=== PATIENT | female | born 1985 ===

== ENCOUNTER 2018-03-19 07:14 | Day surgery (SDC) | payer BC ==
--- NOTE | 2018-03-18 18:55 | Pre-Procedure Note/Attestation ---
Pre-Procedure Note/Attestation Complete Prior to Procedure Planned Procedure: bilateral Procedure Narrative: 1. Septoplasty 2. Submucous resection bilateral inferior turbinates 3. Excision bilateral garett bulossa Indications for Procedure Pre-Operative Diagnosis: Nasal airway obstruction and sinus pressure secondary to: 1. Nasal septal deviation 2. Hypertrophied bilateral inferior turbinates 3. Bilateral garett bulossa. Attestation I attest that I discussed the nature of the procedure; its benefits; risks and complications; and alternatives (and the risks and benefits of such alternatives ), prior to the procedure, with the patient (or the patient's legal insurance claim representative). I attest that, if there was a reasonable possibility of needing a blood transfusion, the patient (or the patient's legal insurance claim representative) was given the [facility] standardized written summary, pursuant to the [place] Blood Safety Act ([place] Health and Safety Code # 1645, as amended). I attest that I re-evaluated the patient just prior to the surgery and that there has been no change in the patient's H&P, has been sent to hospital pre op by her PMD. I have reviewed and concur. I will sign electronically once uploaded to pts. hospital chart. Colton Giron MD Mar 18, 2018 18:55
--- NOTE | 2018-03-18 18:56 | Brief Operative Note ---
Immediate Post Operative Note Operative Note Chief Complaint: Nasal and sinus pressure Pre-op Diagnosis: Nasal airway obstruction and sinus pressure secondary to: 1. Nasal septal deviation 2. Hypertrophied bilateral inferior turbinates 3. Bilateral garett bulossa. Procedure: 1. Septoplasty 2. Submucous resection bilateral inferior turbinates 3. Excision bilateral garett bulossa Post-op Diagnosis: same as pre-op Surgeon: Colton Giron Hand Binder Stripper: none Additional Surgeons: none Anesthesiologist: Yariel Anesthesia: general Specimen: yes Complications: none Condition: stable Fluids: D5LR Estimated Blood Loss: volume - 50 cc Drains: none Packing: Stamberger nasal gel Implant(s) used?: No Colton Giron MD Mar 18, 2018 18:56
[2018-03-19] VITALS (10 sets, daily range): BP systolic 95–119; BP diastolic 65–88
[~2018-03-19] VITALS: Ht 162.6 cm; Wt 43.1 kg
[2018-03-19] MEDS ORDERED: LR 1000ml ONE (08:00)
[2018-03-19] MEDS ORDERED: NS Irrig 1000ml ONE (08:00)
[2018-03-19] MEDS ORDERED: Sterile Water Irrig 1000ml IRRIG ONE (08:00)
--- NOTE | 2018-03-19 08:04 | General Progress Note ---
Progress Note Progress Note PRE OP HISTORY AND PHYSICAL Summary View for Kale Moncada Page 1 of 3 Patient: Kale Moncada : 1985 Age: 32 Y Sex: Female [address]: [address] [place], [place] [id number] Provider: Bandar Pang MD, MPH Date: 02/11/2018 Subjective: Chief Complaints: 1. Nasal polyp. HPI: Nose/General: The patient states that she has had a long history of trouble breathing through the nose. She has to use a number of pillows to lift up her back. She finds that she wakes up multiple times through out the night. She has used Nasarel for many years but finds that it is not helping any more. She also has a constant PND and some rhinorrhea. She has been told that she has ansal polyps bilaterally. She finds that there is some sinus pressure as well. She finds that her sense of smell is OK. ROS: ALLERGY: runny nose yes, Yes; chronic. scratchy throat yes, Yes; chronic. itchy eyes Yes ; both eyes. no ear fullness, No. sinus congestion yes, In AM but pt does nasal rinse. stuffy nose yes, Yes; chronic. RESPIRATORY: no shortness of breath. no chest congestion. no cough. no wheezing. CARDIOLOGY: no chest pain. no palpitations. no leg edema. no shortness of breath. Blood Pressure controlled. no murmur. CONSTITUTIONAL: no weight gain. no loss of appetite. no fever. no weakness. no weight loss. fatigue yes. DERMATOLOGY: no rash. no mole. lumps yes, breast lump. dry or sensitive skin yes. no hives. ENDOCRINOLOGY: fatigue yes. no polydypsia. no polyuria. no weight loss. sleep disturbance wakes up frequently at night due to difficulty breathing. no diabetes. ENT: no cold. epistaxis yes, occasional. no hearing loss. no change in voice, No. no sore throat. ringing in ears yes, occasional. no dizziness. noise exposure Yes; loud music. no Q-tip usr. allergies perennial. no snoring, No. no water exposure. GASTROENTEROLOGY: no nausea. no heartburn. no vomiting. no dysphagia. no abdominal pain. no diarrhea. no constipation. no blood in stool. HEMATOLOGY/LYMPH: no swollen glands. fatigue yes. no loss of appetite. no varicose veins. no easy bruising. MUSCULOSKELETAL: no joint swelling. no joint pain. no leg cramps. no joint stiffness. back pain yes. NEUROLOGY: headache yes, mild H/A every day. no tingling numbness. no seizures. no insomnia. no memory loss. no dizziness. no gait abnormality. OPTHALMOLOGY: no diminished vision. eye irritation yes, both eyes. no drainage from eyes. no blurring of vision. no seasonal eye sx. no dander related eye sx. no loss of vision. PSYCHOLOGY: high stress level yes. depression yes. sleep disturbances yes, wakes up frequently at night. no suicidal ideation. eating disorder in past [email or web address]. Reviewed and approved by Dr. Colton Giron 03/19/18 0802 Colton Giron MD Mar 19, 2018 08:04
[2018-03-19] MEDS ORDERED: Lidocaine 1% 10mg/ml/Epi 0.005mg/ml 30ml vial INJ ONE (08:23)
[2018-03-19] MEDS ORDERED: Bupivacaine w/Epi 0.5% 30ml Vial INJ ONE (08:23)
[2018-03-19] MEDS ORDERED: Cocaine HCl 4% 4ml vial TOPIC ONE (08:23)
[2018-03-19] MEDS ORDERED: Midazolam 2mg/2ml Inj ONE (08:26)
[2018-03-19] MEDS ORDERED: fentaNYL 100 mcg/2 mL IV ONE (08:26)
[2018-03-19] MEDS ORDERED: ceFAZolin sod 1 GM in D5W 55 ML IV ONE (08:45)
[2018-03-19] MEDS ORDERED: Lidocaine 1% MPF 10mg/ml 5ml ONE (08:52)
[2018-03-19] MEDS ORDERED: Dexamethasone 4mg/ml vial ONE (08:52)
[2018-03-19] MEDS ORDERED: Metoclopramide 10mg/2ml Inj ONE (08:52)
[2018-03-19] MEDS ORDERED: Propofol 200mg/20ml IV ONE (08:52)
[2018-03-19] MEDS ORDERED: Dexamethasone 4mg/ml vial IVP ONE (09:00)
--- NOTE | 2018-03-19 09:11 | Discharge Instructions ---
Discharge Instructions Discharge Instructions Follow up with: next week, pt has appt already Diet: regular Resume Normal Activity?: No Activity: light activity Pneumonia Vaccine: pt refused vaccine Influenza Vaccine (Dec to May): pt refused vaccine Follow Up Orders Pt has preinted post op instructions that I reviewed and gave her during her pre op visit last week as well as post op meds-Amoxicillin and [place]. Return to Work/School on: Apr 02, 2018 Special Instructions Ice to face x 48 hours For Surgical Patients Contact your physician for: bleeding, pain, tenderness, redness, swelling, yellowish discharge in the op. site For Congestive Heart Failure Reminder Report to your physician any weight gain of 5 pounds or more in one week. Colton Giron MD Mar 19, 2018 09:11
--- NOTE | 2018-03-19 09:13 | Discharge Instructions ---
Discharge Instructions Discharge Instructions Follow up with: next week, pt already has appt. Diet: regular Resume Normal Activity?: No Activity: light activity Pneumonia Vaccine: pt refused vaccine Influenza Vaccine (Dec to May): pt refused vaccine Follow Up Orders pt has post op printed instructions as well as post op meds Amoxicillin and [place]-all given to pt last week in my office during her pre op visit. Return to Work/School on: Apr 02, 2018 For Surgical Patients Dressing Care: may change May shower: No For Congestive Heart Failure Reminder Report to your physician any weight gain of 5 pounds or more in one week. Colton Giron MD Mar 19, 2018 09:13
[2018-03-19] MEDS ORDERED: NORCO 5-325 TA1 EACH ORAL (09:15)
[2018-03-19] MEDS ORDERED: AMOXICILLIN500 MG ORAL (09:15)
--- NOTE | 2018-03-19 09:23 | Immediate Post-Op Evaluation ---
Immediate Post-Op Evalulation Immediate Post-Op Evalulation Procedure: septoplasty. Date of Evaluation: Mar 19, 2018 Time of Evaluation: 09:21 IV Fluids: 600 Blood Pressure Systolic: 116 Blood Pressure Diastolic: 80 Pulse Rate: 70 Respiratory Rate: 14 O2 Sat by Pulse Oximetry: 100 Temperature (Fahrenheit): 97.5 Nausea: No Vomiting: No Complications none Patient Status: awake, reacts, patent Drug: ancef Given Within 1 Hr of Incision: Yes Time Given: 08:30 Gail Bronson CRNA Mar 19, 2018 09:23
--- NOTE | 2018-03-19 09:25 | Anethesia Preoperative Eval ---
Anesthesia Pre-op PMH/ROS General Date of Evaluation: Mar 19, 2018 Time of Evaluation: 08:15 Anesthesiologist: nancy ASA Score: ASA 2 Mallampati Score Class I : Soft palate, uvula, fauces, pillars visible Class II: Soft palate, uvula, fauces visible Class III: Soft palate, base of uvula visible Class IV: Only hard plate visible Mallampati Classification: Class II Surgeon: denilson Diagnosis: deviated nasal septum Surgical Procedure: septoplasty Anesthesia History: none Family History: no anesthesia problems Allergies: Coded Allergies: No Known Allergies (Unverified , 03/18/18) Medications: see eMAR Patient NPO?: Yes NPO Date: Mar 18, 2018 NPO Time: 23:59 Past Medical History Cardiovascular: Denies: HTN, CAD, [place], valve dz, arrhythmia, other Pulmonary: Denies: asthma, COPD, RUSLAN, other Gastrointestinal/Genitourinary: Denies: GERD, CRI, ESRD, other Neurologic/Psychiatric: Denies: dementia, CVA, depression/anxiety, TIA, other Endocrine: Denies: DM, hypothyroidism, steroids, other HEENT: Denies: cataract (L), cataract (R), glaucoma, MENTASTA (L), MENTASTA (R), other Hematology/Immune: Denies: anemia, DVT, bleeding disorder, other PSxH Narrative: wisdom teeth removal Anesthesia Pre-op Phys. Exam Physician Exam Last Vital Signs Date Time Temp Pulse Resp B/P (MAP) Pulse Ox O2 Delivery O2 Flow Rate FiO2 03/19/18 07:55 97.6 85 18 95/65 100 Room Air Constitutional: NAD Neurologic: CN 2-12 intact Cardiovascular: RRR Respiratory: CTA Gastrointestinal: S/NT/ND Airway Exam Mallampati Classification 2 Mallampati Score: Class II MO: full Neck: normal ROM: full Dentures: no upper, no lower Anesthesia Pre-op A/P Labs Urine Test Test 03/19/18 07:30 Urine HCG, Qualitative Negative (NEGATIVE) Studies Pre-op Studies: EKG - sr Risk Assessment & Plan Plan: general Pre-Antibiotics Drug: ancef Given Within 1 Hr of Incision: Yes Time Given: 08:25 Gail Bronson CRNA Mar 19, 2018 09:25
--- NOTE | 2018-03-19 10:04 | History & Physical ---
History and Physical History & Physicial [facility] Patient Name: aKle Moncada Unit Number: [id number] Date of : 1985 Patient Status: Registered Surgical Day Care Attending Doctor: Colton Giron MD PRE OP HISTORY AND PHYSICAL Summary View for Kale Moncada Page 1 of 3 Patient: Kale Moncada : 1985 Age: 32 Y Sex: Female Address: [address] [place], [place] [id number] Provider: Bandar Pang MD, MPH Date: 02/11/2018 Subjective: Chief Complaints: 1. Nasal polyp. HPI: Nose/General: The patient states that she has had a long history of trouble breathing through the nose. She has to use a number of pillows to lift up her back. She finds that she wakes up multiple times through out the night. She has used Nasarel for many years but finds that it is not helping any more. She also has a constant PND and some rhinorrhea. She has been told that she has ansal polyps bilaterally. She finds that there is some sinus pressure as well. She finds that her sense of smell is OK. ROS: ALLERGY: runny nose yes, Yes; chronic. scratchy throat yes, Yes; chronic. itchy eyes Yes ; both eyes. no ear fullness, No. sinus congestion yes, In AM but pt does nasal rinse. stuffy nose yes, Yes; chronic. RESPIRATORY: no shortness of breath. no chest congestion. no cough. no wheezing. CARDIOLOGY: no chest pain. no palpitations. no leg edema. no shortness of breath. Blood Pressure controlled. no murmur. CONSTITUTIONAL: no weight gain. no loss of appetite. no fever. no weakness. no weight loss. fatigue yes. DERMATOLOGY: no rash. no mole. lumps yes, breast lump. dry or sensitive skin yes. no hives. ENDOCRINOLOGY: fatigue yes. no polydypsia. no polyuria. no weight loss. sleep disturbance wakes up frequently at night due to difficulty breathing. no diabetes. ENT: no cold. epistaxis yes, occasional. no hearing loss. no change in voice, No. no sore throat. ringing in ears yes, occasional. no dizziness. noise exposure Yes; loud music. no Q-tip usr. allergies perennial. no snoring, No. no water exposure. GASTROENTEROLOGY: no nausea. no heartburn. no vomiting. no dysphagia. no abdominal pain. no diarrhea. no constipation. no blood in stool. HEMATOLOGY/LYMPH: no swollen glands. fatigue yes. no loss of appetite. no varicose veins. no easy bruising. MUSCULOSKELETAL: no joint swelling. no joint pain. no leg cramps. no joint stiffness. back pain yes. NEUROLOGY: headache yes, mild H/A every day. no tingling numbness. no seizures. no insomnia. no memory loss. no dizziness. no gait abnormality. OPTHALMOLOGY: no diminished vision. eye irritation yes, both eyes. no drainage from eyes. no blurring of vision. no seasonal eye sx. no dander related eye sx. no loss of vision. PSYCHOLOGY: high stress level yes. depression yes. sleep disturbances yes, wakes up frequently at night. no suicidal ideation. eating disorder in past [email or web address]. Reviewed and approved by Dr. Colton Giron 03/19/18 0802 Colton Giron MD Mar 19, 2018 08:04 Colton Giron MD Mar 19, 2018 10:04
--- NOTE | 2018-03-19 11:25 | 48 Hour Post Anesthesia Eval ---
Post Anesthesia Evaluation Procedure: septoplasty. Date of Evaluation: Mar 19, 2018 Time of Evaluation: 11:25 Blood Pressure Systolic: 115 0: 75 Pulse Rate: 74 Respiratory Rate: 14 Temperature (Fahrenheit): 97.0 O2 Sat by Pulse Oximetry: 98 Airway: patent Nausea: No Vomiting: No Hydration Status: adequate Cardiopulmonary Status: stable Mental Status/LOC: patient returned to baseline Follow-up Care/Observations: na Post-Anesthesia Complications: none Follow-up care needed: N/A Gail Bronson CRNA Mar 19, 2018 11:25
--- NOTE | 2018-03-19 16:15 | Operative Note - Dictated ---
DATE OF OPERATION: 03/19/2018 SURGEON: Colton Giron M.D. MANAGER ZONE: None. ANESTHESIOLOGIST: Gissel. ANESTHESIA: LMA general anesthesia as well as 9 mL of 1% lidocaine with 1:100,000 epinephrine and Marcaine 0.5% with 1:200,000 epinephrine injected submucosally on either side of the nose and septum. Additionally 4 mL of 4% topical cocaine placed on four nasal pledgets, two in either nostrils accounted for at the end of the case. INDICATION FOR SURGERY: Bilateral garett bullosa hypertrophied right and left inferior turbinates and septal deviation, all contributing to nasal airway obstruction and headaches. On CT scan, the sinuses themselves were clear. PREOPERATIVE DIAGNOSES: Bilateral garett bullosa, hypertrophied right and left inferior turbinates and septal deviation, all contributing to nasal airway obstruction and headaches. On CT scan, the sinuses themselves were clear. POSTOPERATIVE DIAGNOSES: Bilateral garett bullosa, hypertrophied right and left inferior turbinates and septal deviation, all contributing to nasal airway obstruction and headaches. On CT scan, the sinuses themselves were clear. FINDINGS: Spur on the right septum, bilateral garett bullosa and hypertrophied right and left inferior turbinates. PROCEDURES: 1. Septoplasty. 2. Submucous resection of the right inferior turbinate. 3. Submucous resection of the left inferior turbinate. 4. Excision of right garett bullosa. 5. Excision of left garett bullosa. TECHNIQUE: The patient was prepped and draped in usual manner. Time-out was performed. All agreed as to the procedure to be done. I injected the aforementioned lidocaine, Marcaine, and epinephrine mixture without difficulty submucosally in the nasal mucosa. Roddy incision made on the right-hand side toward the septal spur. This was elevated with a [place] elevator subperiosteally bilaterally. I then used a small angled scissors to cut superiorly and inferiorly and removed the spur with a straight Natalya. Flap was then sewn back into place with a 4-0 plain suture. I then addressed the right inferior turbinate. Incision made with a 15 blade, elevated with a [place] elevator. Radiofrequency wand setting of 6 coated with saline gel two passes each for 10 seconds. Left inferior turbinate was addressed. Incision anterior inferior with #15 blade, elevated with a [place] elevator. I then placed a radiofrequency wand coated with saline at a setting of 6 two passes x10 seconds each. I then proceeded to medialize the left middle turbinate with garett bullosa in it. Using angled scissors and cut its attachment and removed it with a straight Natalya. I then turned my attention to the right middle turbinate. This was medialized and cut at its attachment and removed with a straight Natalya. Stammberger nasal gel, total of two syringes were placed between one in each nostril. Mustache dressing placed. Sponge and needle count was correct and concurred by all in the room. ESTIMATED BLOOD LOSS: 50 mL. COUNTS: None. DRAINS: None. The patient was alert, stable and extubated in the operating room prior to transfer to the recovery room. I saw her there about 20 minutes later, she was doing well and no bleeding from the back of her mouth or the mustache dressing I had placed at the time of surgery. Colton Giron M.D. DR: SRIRAM JOB#: [id number] CC: SONIA
== END 2018-03-19 13:05 | disposition home or self-care (01) ==
LOC: SUR 07:14
DX: J34.2 Deviated nasal septum (principal); J34.3 Hypertrophy of nasal turbinates; J32.9 Chronic sinusitis, unspecified
CPT/HCPCS: 30140; 30520; 81025; J0690; J1100; J2250; J2405; J2704; J2765; J3010; 94003; 94150